=== PATIENT | female | born 1975 | race Asian ===

== ENCOUNTER 2016-10-19 04:43 | Outpatient (CLI) | payer BC, OTHER ==
[~2016-10-19 04:43] MED LIST: PHEN-633 PO
== END 2016-10-19 23:59 | disposition home or self-care (01) ==
LOC: LAB 04:43
PROVIDERS: ATTEND Family Medicine
DX: E78.2 Mixed hyperlipidemia (principal)
CPT/HCPCS: 36415

== ENCOUNTER 2017-01-06 05:51 | Day surgery (SDC) | payer BC, OTHER ==
[2017-01-06] MEDS ORDERED: LIDOCAINE-MPF 2% 5 ML VIAL MC ONE (05:52)
[2017-01-06] MEDS ORDERED: IV LACTATED RINGERS SOLUTION 1,000 ML BAG IV ONE (05:52)
[2017-01-06] MEDS ORDERED: DEXAMETHASONE SOD PHOSPHATE 4 MG INJ IV ONE (05:52)
[2017-01-06] MEDS ORDERED: PROPOFOL 200 MG/20 ML BOTTLE IV ONE (05:52)
[2017-01-06] MEDS ORDERED: CEFAZOLIN 1 G VIAL MC ONE (05:52)
[2017-01-06] MEDS ORDERED: SEVOFLURANE 250 ML BOTTLE IH ONE (05:52)
[2017-01-06] MEDS ORDERED: ONDANSETRON 4 MG/2 ML VIAL IV ONE (05:52)
[2017-01-06 06:38] LABS: *URINE HCG, QUAL NEGATIVE (NEGATIVE)
[2017-01-06] MEDS ORDERED: BUPIVACAINE 0.25% 30 ML VIAL ONE (07:03)
[2017-01-06] MEDS ORDERED: BUPIVACAINE/EPI PF 0.25% 30 ML VIAL ONE (07:03)
[2017-01-06] MEDS ORDERED: HYDROMORPHONE 2 MG/1 ML DISP.SYRIN ONE (07:13)
[2017-01-06] MEDS ORDERED: SUCCINYLCHOLINE CHLORIDE 200 MG/10 ML VIAL ONE (07:13)
[2017-01-06] MEDS ORDERED: ROCURONIUM BROMIDE 50 MG/5 ML VIAL ONE (07:13)
[2017-01-06] MEDS ORDERED: MIDAZOLAM HCL 2 MG/2 ML VIAL ONE (07:13)
[2017-01-06] MEDS ORDERED: BACITRACIN 50,000 UNITS VIAL ONE (07:17)
[2017-01-06] MEDS ORDERED: METOCLOPRAMIDE HCL 10 MG/2 ML VIAL ONE (07:26)
[2017-01-06] MEDS ORDERED: OXYCODONE/APAP 5-325 MG TABLET ONE (10:13)
== END 2017-01-06 10:43 | disposition home or self-care (01) ==
LOC: DS 05:51
PROVIDERS: ATTEND Surgery
DX: N63 Unspecified lump in breast (principal); E78.5 Hyperlipidemia, unspecified; E55.9 Vitamin D deficiency, unspecified; R00.1 Bradycardia, unspecified
CPT/HCPCS: 19120; 84703; A4649; A4663; J0690; J1100; J1170; J2250; J2405; J2765; J3490 ×3; J7120 ×2; J0330

== ENCOUNTER 2017-07-31 22:07 | Emergency (ER) | payer BC, OTHER ==
[~2017-07-31] VITALS: Ht 162.6 cm; Wt 61.2 kg
--- NOTE | 2017-07-31 22:38 | NUR ---
Patient discharged to home in stable conditon. Written and verbal after care instructions given. Patient verbalizes understanding of instructions.
== END 2017-07-31 22:39 | disposition home or self-care (01) ==
LOC: ER 22:07
DX: J20.8 Acute bronchitis due to other specified organisms (principal); B96.89 Other specified bacterial agents as the cause of diseases classified elsewhere
CPT/HCPCS: A4663

== ENCOUNTER → 2018-01-17 | Outpatient (CLI) | payer BC, OTHER ==
[2018-01-17 08:16] LABS: *BILIRUBIN,URIN NEGATIVE (NEGATIVE); *BLOOD, URINE 2+ (NEGATIVE); *CLARITY,URINE CLEAR (CLEAR); *COLOR,URINE YELLOW (YELLOW); *KETONES,URINE NEGATIVE (NEGATIVE); *PROTEIN,URINE NEGATIVE (NEGATIVE); *UROBILINOGEN,URINE 0.2 E.U./dl (NORMAL); LEUKOCYTE ESTERASE ,URINE NEGATIVE (NEGATIVE); NITRITE, URINE NEGATIVE (NEGATIVE); UGLUCOSE NEGATIVE (NEGATIVE)
[2018-01-17 08:22] LABS: BACTERIA,URINE FEW /HPF (NONE SEEN); RBC,URINE 0-3 /HPF (0-3); SQUAMOUS EPITHELIAL CELL,UR FEW /HPF (NONE SEEN); WBC,URINE 0-3 /HPF (0-3)
[2018-01-17 08:29] LABS: BILIRUBIN,TOTAL 0.4 mg/dL (0.2-1.0); CREATININE 0.6 mg/dL (0.6-1.3); POTASSIUM 3.9 mmol/L (3.5-5.1); TOTAL PROTEIN, SERUM 7.5 g/dL (6.4-8.2)
[2018-01-17 08:34] LABS: BASOPHILS # (AUTO) 0.1 K/uL (0.0-8.0); BASOPHILS % (AUTO) 0.7 % (0.0-2.0); EOSINOPHILS # (AUTO) 0.4 K/uL (0.0-0.7); EOSINOPHILS % (AUTO) 4.2 % (0.0-7.0); HEMATOCRIT 40.2 % (31.2-41.9); LYMPHOCYTES # (AUTO) 2.7 K/uL (20.0-40.0); LYMPHOCYTES % (AUTO) 31.2 % (20.5-51.5); MEAN CORPUSCULAR HEMOGLOBIN 30.7 uug (24.7-32.8); MEAN CORPUSCULAR HGB CONC 35 g/dL (32.3-35.6); MEAN CORPUSCULAR VOLUME 88.2 fL (75.5-95.3); MONOCYTES # (AUTO) 0.6 K/uL (2.0-10.0); MONOCYTES % (AUTO) 7.2 % (0.0-11.0); NEUTROPHILS % (AUTO) 56.7 % (38.5-71.5); PLATELET COUNT (AUTO) 276 K/uL (179-408); RED BLOOD CELL COUNT(AUTO) 4.55 MIL/uL (3.63-4.92); WHITE BLOOD COUNT (AUTO) 8.8 K/uL (3.8-11.8)
[2018-01-17 08:49] LABS: THYROID STIMULATING HORMONE 2.175 mIU/mL (0.358-3.740)
[2018-01-18 03:06] LABS: VIT D, 25-HYDROXY 25.6 ng/mL (30.0-100.0)
[2018-01-18 08:06] LABS: CORTISOL 10.4 ug/dL (.)
== END | disposition home or self-care (01) ==
LOC: LAB 04:46
PROVIDERS: ATTEND Family Medicine
DX: E55.9 Vitamin D deficiency, unspecified (principal); R03.0 Elevated blood-pressure reading, without diagnosis of hypertension; R63.5 Abnormal weight gain
CPT/HCPCS: 36415; 82306; 82533; 84443; 85025

== ENCOUNTER → 2020-03-13 | Outpatient (CLI) | payer BC, OTHER ==
[~2020-03-13] MED LIST changes: -PHEN-633 PO; +[UNRECOGNIZED DRUG - CODE] PO
[2020-03-13 07:53] LABS: BILIRUBIN,TOTAL 0.5 mg/dL (0.2-1.0); CREATININE 0.7 mg/dL (0.6-1.3); POTASSIUM 4.2 mmol/L (3.5-5.1); TOTAL PROTEIN, SERUM 7.8 g/dL (6.4-8.2)
[2020-03-13 08:01] LABS: BASOPHILS # (AUTO) 0.1 K/uL (0.0-8.0); BASOPHILS % (AUTO) 0.7 % (0.0-2.0); EOSINOPHILS # (AUTO) 0.2 K/uL (0.0-0.7); EOSINOPHILS % (AUTO) 2.7 % (0.0-7.0); HEMATOCRIT 41.5 % (31.2-41.9); HEMOGLOBIN 14.2 g/dL (10.9-14.3); LYMPHOCYTES # (AUTO) 2.6 K/uL (20.0-40.0); LYMPHOCYTES % (AUTO) 30.3 % (20.5-51.5); MEAN CORPUSCULAR HEMOGLOBIN 30.1 uug (24.7-32.8); MEAN CORPUSCULAR HGB CONC 34 g/dL (32.3-35.6); MONOCYTES # (AUTO) 0.5 K/uL (2.0-10.0); MONOCYTES % (AUTO) 6.2 % (0.0-11.0); NEUTROPHILS # (AUTO) 5.1 K/uL (1.8-8.9); NEUTROPHILS % (AUTO) 60.1 % (38.5-71.5); PLATELET COUNT (AUTO) 316 K/uL (179-408); RED BLOOD CELL COUNT(AUTO) 4.71 MIL/uL (3.63-4.92); WHITE BLOOD COUNT (AUTO) 8.5 K/uL (3.8-11.8)
[2020-03-13 08:14] LABS: THYROID STIMULATING HORMONE 1.619 mIU/mL (0.358-3.740)
[2020-03-13 08:25] LABS: *BILIRUBIN,URIN NEGATIVE (NEGATIVE); *CLARITY,URINE CLEAR (CLEAR); *COLOR,URINE YELLOW (YELLOW); *KETONES,URINE NEGATIVE (NEGATIVE); *UROBILINOGEN,URINE 0.2 E.U./dl (NORMAL); LEUKOCYTE ESTERASE ,URINE NEGATIVE (NEGATIVE); NITRITE, URINE NEGATIVE (NEGATIVE); UGLUCOSE NEGATIVE (NEGATIVE)
[2020-03-13 08:37] LABS: *BLOOD, URINE TRACE (NEGATIVE)
[2020-03-13 10:56] LABS: *RHEUMATOID FACTOR SCREEN NEG (NEGATIVE)
[2020-03-13 14:24] LABS: BACTERIA,URINE NONE SEEN /HPF (NONE SEEN); WBC,URINE NONE SEEN /HPF (0-3)
== END | disposition home or self-care (01) ==
LOC: LAB 07:13
PROVIDERS: ATTEND Family Medicine
DX: Z00.01 Encounter for general adult medical examination with abnormal findings (principal); M25.541 Pain in joints of right hand; M25.542 Pain in joints of left hand
CPT/HCPCS: 36415; 73130; 84443; 85025; 86038; 86430